=== PATIENT | female | born 1930 | race Caucasian/White ===

== ENCOUNTER 2019-03-30 12:22 | Emergency (ER) | payer OTHER ==
[~2019-03-30] VITALS: Ht 162.6 cm; Wt 49.9 kg
[2019-03-30 12:22] VITALS: BP_SYST 154
[2019-03-30 14:30] VITALS: BP_SYST 115
== END 2019-03-30 14:30 | disposition home or self-care (01) ==
LOC: SED 12:22
DX: S02.32XA Fracture of orbital floor, left side, initial encounter for closed fracture (principal); S02.40FA Zygomatic fracture, left side, initial encounter for closed fracture; W01.0XXA Fall on same level from slipping, tripping and stumbling without subsequent striking against object, initial encounter; Y93.89 Activity, other specified; Y92.89 Other specified places as the place of occurrence of the external cause; Y99.8 Other external cause status
CPT/HCPCS: 70486-TC; 72170-TC; 73502; 99284